=== PATIENT | male | born 1990 | race Caucasian/White ===

== ENCOUNTER 2018-09-21 02:37 | Emergency (ER) | payer MEDICAID, SELFPAY ==
[2018-09-21 02:39] VITALS: BP 132/82; PULSE 75; RESP 16; TEMP 36.6; O2SAT 98
--- NOTE | 2018-09-21 02:54 | W.ED.GENAD ---
Discharge Plan Disposition Patient Disposition: HOME Condition: Good Discharge Details Chief Complaint: DentalOral Clinical Impression: Abscess, periapical Primary Care Provider: None,None ED Provider: Umer Pearson Home Meds and New Rx's Prescriptions: No Action blood sugar diagnostic [Blood Glucose Test] 1 EACH strip 1 ea Miscellaneous AC Qty: 90 RF: 3 pen needle, diabetic 1 EACH needle 1 ea Miscellaneous 5X/DAY Qty: 150 RF: 3 magnesium oxide 400 MG tablet 400 mg PO BID Qty: 60 RF: 3 lisinopril 2.5 MG tablet 2.5 mg PO DAILY Qty: 30 RF: 3 Novolog Flexpen U-100 Insulin 300 UNITS/3 ML insulin pen Sub-Q AC Qty: 7 RF: 3 Lantus Solostar U-100 Insulin 100 UNIT/ML insulin pen 20 unit SQ BID Qty: 5 RF: 3 Discharge Instructions Instructions: Abscess (ED) Additional Instructions: You have a dental abscess, this is been incised and drained. You now need to take the antibiotics to help control the infection. Please take the cl[place] [facility] [place] take 1000 mg of Tylenol every 6 hours and 800 mg of ibuprofen every 6 hours. Please contact the dentist on the dental sheet that we gave you. If you notice any worsening of your symptoms, or any new symptoms such as vomiting, diarrhea, fever, chills, shortness of breath, chest pain, numbness, weakness, or fainting , please return immediately to the emergency department for reevaluation. Please follow up with your primary care provider as soon as possible for reassessment and reevaluation. As always, it was a pleasure participating in your medical care today. Medical Decision Making This is a 28-year-old male with known dental caries who presents for dental pain. He was at [facility] a few hours ago where he was given clindamycin for dental infection, recommended to come up to [facility] per the patient and patient's mother for 24 7 oral surgeon coverage for removal of his teeth. Fortunately we do not have this type of coverage here. Physical exam does demonstrate a periapical abscess on the internal component of the tooth 14 1516. No evidence of significant abscess on the lateral component. No active drainage at this time. No evidence of significant swelling in the face. No evidence of meningitis, significant cervical lymphadenopathy or other abnormality. This time with a notable periapical abscess I feel it needs to be incised and drained. We will place topical anesthetic, then drain. 3:18 AM Patient had notable release of pus and blood. Dental block was also performed over the left posterior superior alveolar space with near complete resolution of his pain. Patient will be discharged home with recommendation for continued clindamycin, close dental follow-up, Tylenol Motrin for pain. I have extensively reviewed the treatment plan and discharge instructions with the patient and their family. I have addressed all patient concerns at this time. The patient and family was made aware of what symptoms to monitor for that would warrant a return to the emergency department. Discussed the plan with the patient and family, they demonstrate verbal understanding and agreement with our assessment and plan at this time. Time out was taken to identify the correct patient, procedure, and site. Risks and benefits were discussed with the patient and consent was obtained. Direct pressure was held over the area prior to the procedure to reduce painful injection. Topical Hurricaine gel was placed over the periapical abscess, moderate analgesia was obtained. The abscess was then incised with an 18-gauge needle and a moderate amount of pus and blood returned. The patient tolerated the procedure. There were no complications. Time out was taken to identify the correct patient, procedure, and site. Risks and benefits were discussed with the patient and consent was obtained. Direct pressure was held over the area prior to the procedure to reduce painful injection. 5 cc?s of Lidocaine 1% and Bupivacaine 0.25% was instilled into the left posterior superior alveolar with a 27 gauge needle.Complete analgesia was obtained. The patient tolerated the procedure. There were no complications. HPI General Date/Time Provider Initiated Documentation: 09/21/18 02:45. HPI Narrative: This is a 28-year-old male with a past medical history of diabetes who presents today for dental pain. He is at [facility] emergency department just a few hours ago where he was diagnosed with dental infection, started on clindamycin having received his first dose in the ER, and per the patient and family told to come up to [facility] for further dental evaluation. Family states that they were told that there is 24/7 dental coverage here at [facility], and a surgeon could remove his teeth if needed. Unfortunately this is not the case. Patient does complain of pain in the left upper posterior molars. Does admit to small amount of drainage and swelling on the inside of his teeth in that area. He denies associated fever, chills, headache or neck pain. He has no other complaints at this time. No other modifying factors. He has taken Tylenol Motrin for pain. Related Data Home Medications Medication Instructions Recorded Confirmed Lantus Solostar U-100 Insulin 20 unit SQ BID #5 pkg 04/27/16 09/21/18 Novolog Flexpen U-100 Insulin See Protocol SUB-Q AC #7 pkg 04/27/16 09/21/18 blood sugar diagnostic [Blood #90 strip 04/27/16 11/30/16 Glucose Test] lisinopril 2.5 mg PO DAILY #30 tablet 04/27/16 09/21/18 magnesium oxide 400 mg PO BID #60 tab 04/27/16 09/21/18 pen needle, diabetic #150 dis.needle 04/27/16 11/30/16 Previous Rx's Medication Instructions Recorded Lantus Solostar U-100 Insulin 20 unit SQ BID #5 pkg 04/27/16 Novolog Flexpen U-100 Insulin See Protocol SUB-Q AC #7 pkg 04/27/16 blood sugar diagnostic [Blood #90 strip 04/27/16 Glucose Test] lisinopril 2.5 mg PO DAILY #30 tablet 04/27/16 magnesium oxide 400 mg PO BID #60 tab 04/27/16 pen needle, diabetic #150 dis.needle 04/27/16 Allergies Allergy/AdvReac Type Severity Reaction Status Date / Time No Known Allergies Allergy Unverified 09/21/18 02:42 General Stated Complaint: DentalOral TIFFANY: 4 Review of Systems Review of Systems All systems reviewed & are unremarkable except as noted in HPI and below PFSH Medical History Alcohol abuse Back pain at L4-L5 level DM (diabetes mellitus) (04/14/11) Dental caries Soraya-rectal abscess Spinal Fracture, closed (03/14/97) Social History Smoking/Tobacco Use Status: Current every day Tobacco Type: cigarettes Smoking cigarettes per day: 1 Alcohol Intake: never Substance use type: does not use Do you feel safe in your relationship?: Yes Exam Narrative Exam Narrative: 1.Const: Well-nourished, Well-developed, appearing stated age 2.Eyes: PERRL, no conjunctival injection, and symmetrical lids. 3.ENT: Atraumatic external nose and ears. Moist MM. Neck: Symmetric, trachea midline, No thyromegaly. Notably poor dentition throughout, there is evidence of notable periapical abscess on the inside of the patient's teeth over the periapical space by tooth 14,15 and 16. 4.CVS: +S1/S2, No murmurs or gallops. Peripheral pulses 2+ and equal in all extremities. Brisk capillary refill in all extremities. 5.RESP: Unlabored respiratory effort. Clear to auscultation bilaterally. No wheezes rales or rhonchi 6.GI: Soft, Nontender/Nondistended, No hepatosplenomegaly. No guarding or rebound. 7.MSK: Normocephalic/Atraumatic, Extremities w/o deformity or ttp No cyanosis or clubbing, Normal movement of all extremities 8.Skin: Warm, Dry. No rashes or lesions. 9.Neuro: rn on site II-XII grossly intact. Sensation grossly intact, no focal neurologic deficits. 10.Psych: (AAO) x3. Appropriate mood and affect Course Vital Signs Temperature 36.6 C 09/21/18 02:39 Pulse 75 09/21/18 02:39 Respiratory Rate 16 09/21/18 02:39 Blood Pressure 132/82 09/21/18 02:39 Pulse Oximetry 98 09/21/18 02:39 Temperature 36.6 C 09/21/18 02:39 Temperature Source Skin 09/21/18 02:39 Pulse 75 09/21/18 02:39 Respiratory Rate 16 09/21/18 02:39 Respiratory Effort Non-Labored 09/21/18 02:43 Blood Pressure 132/82 09/21/18 02:39 Blood Pressure Position Sitting 09/21/18 02:39 Pulse Oximetry 98 09/21/18 02:39 Oxygen Delivery Method Room Air 09/21/18 02:39 Oxygen Flow Rate 0 09/21/18 02:39 Pain Level 9 09/21/18 02:39
--- NOTE | 2018-09-21 03:01 | ED.GENADUL_ITS ---
Discharge Plan Disposition Patient Disposition: HOME Condition: Good Discharge Details Chief Complaint: DentalOral Clinical Impression: Abscess, periapical Primary Care Provider: None,None ED Provider: Umer Pearson Home Meds and New Rx's Prescriptions: No Action blood sugar diagnostic [Blood Glucose Test] 1 EACH strip 1 ea Miscellaneous AC Qty: 90 RF: 3 pen needle, diabetic 1 EACH needle 1 ea Miscellaneous 5X/DAY Qty: 150 RF: 3 magnesium oxide 400 MG tablet 400 mg PO BID Qty: 60 RF: 3 lisinopril 2.5 MG tablet 2.5 mg PO DAILY Qty: 30 RF: 3 Novolog Flexpen U-100 Insulin 300 UNITS/3 ML insulin pen Sub-Q AC Qty: 7 RF: 3 Lantus Solostar U-100 Insulin 100 UNIT/ML insulin pen 20 unit SQ BID Qty: 5 RF: 3 Discharge Instructions Instructions: Abscess (ED) Additional Instructions: You have a dental abscess, this is been incised and drained. You now need to take the antibiotics to help control the infection. Please take the cl[place] as directed by [place] [facility] [place] Please take 1000 mg of Tylenol every 6 hours and 800 mg of ibuprofen every 6 hours. Please contact the dentist on the dental sheet that we gave you. If you notice any worsening of your symptoms, or any new symptoms such as vomiting, diarrhea, fever, chills, shortness of breath, chest pain, numbness, weakness, or fainting , please return immediately to the emergency department for reevaluation. Please follow up with your primary care provider as soon as possible for reassessment and reevaluation. As always, it was a pleasure participating in your medical care today. Medical Decision Making This is a 28-year-old male with known dental caries who presents for dental pain. He was at [facility] a few hours ago where he was given clindamycin for dental infection, recommended to come up to [facility] per the patient and patient's mother for 24 7 oral surgeon coverage for removal of his teeth. Fortunately we do not have this type of coverage here. Physical exam does demonstrate a periapical abscess on the internal component of the tooth 14 1516. No evidence of significant abscess on the lateral component. No active drainage at this time. No evidence of significant swelling in the face. No evidence of meningitis, significant cervical lymphadenopathy or other abnormality. This time with a notable periapical abscess I feel it needs to be incised and drained. We will place topical anesthetic, then drain. 3:18 AM Patient had notable release of pus and blood. Dental block was also performed over the left posterior superior alveolar space with near complete resolution of his pain. Patient will be discharged home with recommendation for continued clindamycin, close dental follow-up, Tylenol Motrin for pain. I have extensively reviewed the treatment plan and discharge instructions with the patient and their family. I have addressed all patient concerns at this time. The patient and family was made aware of what symptoms to monitor for that would warrant a return to the emergency department. Discussed the plan with the patient and family, they demonstrate verbal understanding and agreement with our assessment and plan at this time. Time out was taken to identify the correct patient, procedure, and site. Risks and benefits were discussed with the patient and consent was obtained. Direct pressure was held over the area prior to the procedure to reduce painful injection. Topical Hurricaine gel was placed over the periapical abscess, moderate analgesia was obtained. The abscess was then incised with an 18-gauge needle and a moderate amount of pus and blood returned. The patient tolerated the procedure. There were no complications. Time out was taken to identify the correct patient, procedure, and site. Risks and benefits were discussed with the patient and consent was obtained. Direct pressure was held over the area prior to the procedure to reduce painful inj ection. 5 cc?s of Lidocaine 1% and Bupivacaine 0.25% was instilled into the left posterior superior alveolar with a 27 gauge needle.Complete analgesia was obtained. The patient tolerated the procedure. There were no complications. HPI General Date/Time Provider Initiated Documentation: 09/21/18 02:45 . HPI Narrative: This is a 28-year-old male with a past medical history of diabetes who presents today for dental pain. He is at [facility] emergency department just a few hours ago where he was diagnosed with dental infection, started on clindamycin having received his first dose in the ER, and per the patient and family told to come up to [facility] for further dental evaluation. Family states that they were told that there is 24/7 dental coverage here at [facility], and a surgeon could remove his teeth if needed. Unfortunately this is not the case. Patient does complain of pain in the left upper posterior molars. Does admit to small amount of drainage and swelling on the inside of his teeth in that area. He denies associated fever, chills, headache or neck pain. He has no other complaints at this time. No other modifying factors. He has taken Tylenol Motrin for pain. Related Data Home Medications Medication Instructions Recorded Confirmed Lantus Solostar U-100 Insulin 20 unit SQ BID #5 pkg 04/27/16 09/21/18 Novolog Flexpen U-100 Insulin See Protocol SUB-Q AC #7 pkg 04/27/16 09/21/18 blood sugar diagnostic [Blood #90 strip 04/27/16 11/30/16 Glucose Test] lisinopril 2.5 mg PO DAILY #30 tablet 04/27/16 09/21/18 magnesium oxide 400 mg PO BID #60 tab 04/27/16 09/21/18 pen needle, diabetic #150 dis.needle 04/27/16 11/30/16 Previous Rx's Medication Instructions Recorded Lantus Solostar U-100 Insulin 20 unit SQ BID #5 pkg 04/27/16 Novolog Flexpen U-100 Insulin See Protocol SUB-Q AC #7 pkg 04/27/16 blood sugar diagnostic [Blood #90 strip 04/27/16 Glucose Test] lisinopril 2.5 mg PO DAILY #30 tablet 04/27/16 magnesium oxide 400 mg PO BID #60 tab 04/27/16 pen needle, diabetic #150 dis.needle 04/27/16 Allergies Allergy/AdvReac Type Severity Reaction Status Date / Time No Known Allergies Allergy Unverified 09/21/18 02:42 General Stated Complaint: DentalOral TIFFANY: 4 Review of Systems Review of Systems All systems reviewed & are unremarkable except as noted in HPI and below PFSH Medical History Alcohol abuse Back pain at L4-L5 level DM (diabetes mellitus) (04/14/11) Dental caries Soraya-rectal abscess Spinal Fracture, closed (03/14/97) Social History Smoking/Tobacco Use Status: Current every day Tobacco Type: cigarettes Smoking cigarettes per day: 1 Alcohol Intake: never Substance use type: does not use Do you feel safe in your relationship?: Yes Exam Narrative Exam Narrative: 1.Const: Well-nourished, Well-developed, appearing stated age 2.Eyes: PERRL, no conjunctival injection, and symmetrical lids. 3.ENT: Atraumatic external nose and ears. Moist MM. Neck: Symmetric, trachea midline, No thyromegaly. Notably poor dentition throughout, there is evidence of notable periapical abscess on the inside of the patient's teeth over the periapical space by tooth 14,15 and 16. 4.CVS: +S1/S2, No murmurs or gallops. Peripheral pulses 2+ and equal in all extremities. Brisk capillary refill in all extremities. 5.RESP: Unlabored respiratory effort. Clear to auscultation bilaterally. No wheezes rales or rhonchi 6.GI: Soft, Nontender/Nondistended, No hepatosplenomegaly. No guarding or rebound. 7.MSK: Normocephalic/Atraumatic, Extremities w/o deformity or ttp No cyanosis or clubbing, Normal movement of all extremities 8.Skin: Warm, Dry. No rashes or lesions. 9.Neuro: inspector chief II-XII grossly intact. Sensation grossly intact, no focal neurologic deficits. 10.Psych: (AAO) x3. Appropriate mood and affect Course Vital Signs Temperature 36.6 C 09/21/18 02:39 Pulse 75 09/21/18 02:39 Respiratory Rate 16 09/21/18 02:39 Blood Pressure 132/82 09/21/18 02:39 Pulse Oximetry 98 09/21/18 02:39 Temperature 36.6 C 09/21/18 02:39 Temperature Source Skin 09/21/18 02:39 Pulse 75 09/21/18 02:39 Respiratory Rate 16 09/21/18 02:39 Respiratory Effort Non-Labored 09/21/18 02:43 Blood Pressure 132/82 09/21/18 02:39 Blood Pressure Position Sitting 09/21/18 02:39 Pulse Oximetry 98 09/21/18 02:39 Oxygen Delivery Method Room Air 09/21/18 02:39 Oxygen Flow Rate 0 09/21/18 02:39 Pain Level 9 09/21/18 02:39
== END 2018-09-21 03:28 | disposition home or self-care (01) ==
PROVIDERS: Emergency Provider Student in an Organized Health Care Education/Training Program
DX: K04.7 Periapical abscess without sinus (principal)
CPT/HCPCS: 99283